=== PATIENT | female | born 1980 | race Asian ===

== ENCOUNTER 2017-03-09 00:15 | Inpatient (IN) | payer SELFPAY ==
[~2017-03-09] VITALS: Ht 162.6 cm; Wt 65.8 kg
[2017-03-09] MEDS ORDERED: LACTATED RINGERS 1,000 ML IV SCH (00:43)
[2017-03-09] MEDS ORDERED: OXYTOCIN 10 UNITS/ML VIAL IM SCH (00:45)
[2017-03-09] MEDS ORDERED: PROMETHAZINE 25 MG/ML VIAL IVP PRN (00:45)
[2017-03-09] MEDS ORDERED: NALBUPHINE HYDROCHLORIDE 10 MG/ML VIAL IVP PRN (00:45)
[2017-03-09] MEDS ORDERED: METHYLERGONOVINE 0.2 MG/ML AMP IM PRN (00:45)
[2017-03-09 00:59] LABS: BASOPHILS # (AUTO) 0.1 K/uL (0.00-0.22); BASOPHILS % (AUTO) 0.8 % (0.0-2.0); EOSINOPHILS # (AUTO) 0.1 K/uL (0-0.4); EOSINOPHILS % (AUTO) 1.2 % (0.0-4.0); HEMATOCRIT 32.1 % (36-48); HEMOGLOBIN 10.3 g/dL (12.0-16.0); LYMPHOCYTES # (AUTO) 2.4 K/uL (2.5-16.5); LYMPHOCYTES % (AUTO) 28.6 % (20.5-51.1); MEAN CORPUSCULAR HEMOGLOBIN 29 pg (27-31); MEAN CORPUSCULAR HGB CONC 32 g/dL (33-37); MEAN CORPUSCULAR VOLUME 90 fL (80-94); MONOCYTES # (AUTO) 0.8 K/uL (0.8-1.0); NEUTROPHILS # (AUTO) 5.1 K/uL (1.8-7.7); NEUTROPHILS % (AUTO) 60.4 % (42.2-75.2); PLATELET COUNT (AUTO) 203 K/uL (140-450); RED BLOOD CELL COUNT(AUTO) 3.58 MIL/uL (4.20-5.40); RED CELL DISTRIBUTION WIDTH 13.1 % (11.6-13.7); WHITE BLOOD COUNT (AUTO) 8.5 K/uL (4.8-10.8)
[2017-03-09 01:00] VITALS: BP 121/80
[2017-03-09 01:00] LABS: APPEARANCE,URINE SL CLOUDY (CLEAR); BILIRUBIN,URINE 1+ (NEGATIVE); BLOOD, URINE NEGATIVE (NEGATIVE); COLOR,URINE YELLOW (YELLOW); LEUKOCYTE ESTERASE ,URINE 2+ (NEGATIVE); NITRITE, URINE NEGATIVE (NEGATIVE); PROTEIN,URINE TRACE (NEGATIVE); UGLUCOSE NEGATIVE (NEGATIVE)
[2017-03-09] MEDS ORDERED: OXYTOCIN 20 UNITS/LR PREMIX 1,000 ML IV SCH (01:00)
[2017-03-09] MEDS ORDERED: MISOPROSTOL 25 MCG TAB VG PRN (01:00)
[2017-03-09] MEDS ORDERED: MISOPROSTOL 25 MCG TAB ONE (01:53)
[2017-03-09 03:19] LABS: BACTERIA,URINE 4+ /HPF (None Seen); ICTOTEST NEGATIVE (NEGATIVE); RBC,URINE 0-5 (RARE) /HPF (0-5); SQUAMOUS EPITHELIAL CELL,UR 60-80 /LPF (0-3 (FEW)); WBC,URINE TOO MANY TO COUNT /HPF (0-5)
[2017-03-09] MEDS ORDERED: NALBUPHINE HYDROCHLORIDE 10 MG/ML VIAL ONE (05:56)
[2017-03-09] MEDS ORDERED: PROMETHAZINE 25 MG/ML VIAL ONE (05:57)
[2017-03-09] MEDS ORDERED: ROPIVACAINE 0.2%/NS PREMIX 250 ML EPI ONE (07:04)
--- NOTE | 2017-03-09 08:35 | NUR ---
PATIENT HAS BEEN SCREENED AND CATEGORIZED MODERATE NUTRITION RISK. PATIENT WILL BE SEEN WITHIN 3-5 DAYS OF ADMISSION. 03/11/17-03/13/[address] Addendum: 03/09/17 at [address] *Error PATIENT HAS BEEN SCREENED AND CATEGORIZED LOW NUTRITION RISK. PATIENT WILL BE SEEN WITHIN 7 DAYS OF ADMISSION. 03/15/[address]
[2017-03-09] MEDS ORDERED: ROPIVACAINE 0.2%/NS PREMIX 250 ML EPI SCH (10:05)
[2017-03-09] MEDS ORDERED: OXYTOCIN 20 UNITS/LR PREMIX 1,000 ML IV ONE (12:03)
[2017-03-09] MEDS ORDERED: OXYTOCIN 10 UNITS/ML VIAL ONE (17:38)
[2017-03-09] MEDS ORDERED: IRON65TA11 PO (20:05)
[2017-03-09] MEDS ORDERED: TEMAZEPAM 15 MG CAP PO PRN (20:50)
[2017-03-09] MEDS ORDERED: oxyCODONE/APAP 5/325 MG 1 TAB TAB PO PRN (20:50)
[2017-03-09] MEDS ORDERED: BENZOCAINE/MENTHOL 20%-0.5% 60 GM CAN TP PRN (20:50)
[2017-03-09] MEDS ORDERED: WITCH HAZEL 40 PAD PACKAGE TP PRN (20:50)
[2017-03-09] MEDS ORDERED: DOCUSATE SOD/SENNA 50/8.6 MG 1 TAB PO SCH (21:00)
[2017-03-09] MEDS ORDERED: oxyCODONE/APAP 5/325 MG 1 TAB TAB ONE (21:00)
[2017-03-10] MEDS: IBUPROFEN 800 MG TAB PO PRN ×2 (00:45→16:53)
[2017-03-10 08:02] LABS: HEMATOCRIT 21.5 % (36-48); HEMOGLOBIN 7.2 g/dL (12.0-16.0)
[2017-03-10] MEDS: HYDROcodone/APAP 5/325 MG 1 TAB TAB PO PRN (12:46)
[2017-03-10] MEDS ORDERED: FERROUS SULFATE 325 MG TABEC PO SCH ×2 (14:30→17:00)
[2017-03-10] MEDS: FERROUS SULFATE 325 MG TABEC PO SCH (16:54)
[2017-03-11] MEDS: HYDROcodone/APAP 5/325 MG 1 TAB TAB PO PRN (00:06)
[2017-03-11] MEDS: FERROUS SULFATE 325 MG TABEC PO SCH ×2 (08:20→13:00)
[2017-03-11] MEDS: IBUPROFEN 800 MG TAB PO PRN (08:24)
[2017-03-11] MEDS ORDERED: IBUP-2213 PO (09:30)
== END 2017-03-11 17:00 | disposition home or self-care (01) | DRG 775 ==
LOC: MLD 00:15 → MFCC 03-10 00:30
PROVIDERS: ADMIT Obstetrics & Gynecology; ATTEND Obstetrics & Gynecology
PROC: 10D07Z6 Extraction of Products of Conception, Vacuum, Via Natural or Artificial Opening (ICD-10-PCS; principal; 2017-03-09)
PROC: 0W8NXZZ Division of Female Perineum, External Approach (ICD-10-PCS; 2017-03-09)
PROC: 00HU33Z Insertion of Infusion Device into Spinal Canal, Percutaneous Approach (ICD-10-PCS; 2017-03-09)
PROC: 3E0R3CZ (ICD-10-PCS; 2017-03-09)
PROC: 3E0234Z Introduction of Serum, Toxoid and Vaccine into Muscle, Percutaneous Approach (ICD-10-PCS; 2017-03-10)
DX: O80 Encounter for full-term uncomplicated delivery (principal); O09.513 Supervision of elderly primigravida, third trimester; Z37.0 Single live birth; Z3A.40 40 weeks gestation of pregnancy; Z23 Encounter for immunization
CPT/HCPCS: 36415; 51702; 59409; 81001; 85018; 85025; 86592; 86886; 86900; 86901; 87086; 90715; J2300; J2550; J2590; J2795; J7120